=== PATIENT | female | born 1995 | race Caucasian/White ===

== ENCOUNTER 2020-10-04 22:00 | Emergency (ER) | payer OTHER ==
[2020-10-04 22:57] LABS: HEMOGLOBIN 13.2 gm/dl (12.3-15.3); RED BLOOD COUNT 4.43 M/UL (4.00-5.10)
[2020-10-04 23:15] LABS: BUN/CREATININE RATIO 10 (0-10)
== END 2020-10-05 01:29 | disposition home or self-care (01) ==
LOC: ER1 22:00
PROVIDERS: Physician Assistant Medical
DX: R07.2 Precordial pain (principal); I10 Essential (primary) hypertension; Z88.1 Allergy status to other antibiotic agents
CPT/HCPCS: 71045; 80053; 81001; 82550; 82553; 83874; 84439; 84443; 84484; 85025; 85379; 93005; 99285

== ENCOUNTER 2021-02-19 09:37 | Emergency (ER) | payer OTHER ==
[2021-02-19 10:53] LABS: HEMOGLOBIN 13.5 gm/dl (12.3-15.3); RED BLOOD COUNT 4.7 M/UL (4.00-5.10); WHITE BLOOD COUNT 6.9 K/UL (4.5-11.0)
[2021-02-19 11:23] LABS: BUN/CREATININE RATIO 8 (0-10)
[2021-02-19] MEDS ORDERED: ZOFRAN4 MG PO (14:06)
== END 2021-02-19 14:35 | disposition home or self-care (01) ==
LOC: ER1 09:37
PROVIDERS: Physician Assistant
DX: K62.5 Hemorrhage of anus and rectum (principal); I10 Essential (primary) hypertension; Z88.1 Allergy status to other antibiotic agents; Z20.822 Contact with and (suspected) exposure to COVID-19
CPT/HCPCS: 80053; 81001; 84703; 85025; 85652; 86140; 99283; U0003

== ENCOUNTER 2021-12-30 23:13 | Emergency (ER) | payer OTHER ==
[~2021-12-30 23:13] MED LIST: ZOFRAN4 MG PO
[2021-12-31] MEDS ORDERED: AMOXICILLIN500 M1 PO (02:08)
== END 2021-12-31 02:28 | disposition home or self-care (01) ==
LOC: ER1 23:13
DX: K02.9 Dental caries, unspecified (principal); K05.10 Chronic gingivitis, plaque induced; H92.02 Otalgia, left ear; Z88.1 Allergy status to other antibiotic agents
CPT/HCPCS: 99282

== ENCOUNTER 2022-03-07 02:27 | Outpatient (CLI) | payer OTHER ==
[~2022-03-07 02:27] MED LIST changes: +AMOXICILLIN500 M1 PO
== END 2022-03-07 04:18 | disposition home or self-care (01) ==
LOC: GENOP 02:27
DX: O10.912 Unspecified pre-existing hypertension complicating pregnancy, second trimester (principal); O26.852 Spotting complicating pregnancy, second trimester; Z79.82 Long term (current) use of aspirin; Z79.899 Other long term (current) drug therapy; Z3A.27 27 weeks gestation of pregnancy
CPT/HCPCS: G0463